=== PATIENT | male | born 1995 | race Caucasian/White ===

== ENCOUNTER → 2024-05-10 | Outpatient (BNVA) | payer MEDICAID, SELFPAY | END | disposition home or self-care (01) | PROVIDERS: PCP Nurse Practitioner Family; Referring Provider Nurse Practitioner Family; Visit Provider Urology | DX: Z30.2 Encounter for sterilization (principal); N40.0 Benign prostatic hyperplasia without lower urinary tract symptoms; E66.9 Obesity, unspecified; Z68.25 Body mass index [BMI] 25.0-25.9, adult; F17.210 Nicotine dependence, cigarettes, uncomplicated | CPT/HCPCS: 81003; 99212; G0463 ==

== ENCOUNTER 2024-07-11 06:35 | Day surgery (SDC) | payer MEDICAID, SELFPAY ==
[2024-07-10 10:28] VITALS: BMI 26.6
--- NOTE | 2024-07-10 13:12 | SUR.PREOP ---
Cardiac records reviewed with Dr Stafford.
[2024-07-11] VITALS (7 sets, daily range): BP systolic 121–147; BP diastolic 76–93; PULSE 75–86; RESP 12–22; TEMP 36.6–36.9; O2SAT 97–100; BMI 25.8
[2024-07-11] MEDS: RINGERS LACTATED 1000 ML 1,000 ML 20 ML IV (07:11)
--- NOTE | 2024-07-11 10:07 | SUR.PHASEI ---
pt received from OR in recovery bay 7. pt awake and alert, breathing unlabored on room air. v/s stable. pt dressing to scrotal area cdi. report received from Dr. Stafford and Gary GILL.
--- NOTE | 2024-07-11 10:10 | PD.SUROPNT ---
Date of Procedure 07/11/24 Pre Op Diagnosis Elective sterilization Post Op Diagnosis Same Procedure Bilateral vasectomy Findings Bilateral vas Procedure Description Indications for procedure this is 29-year-old gentleman who is with children desired bilateral vasectomy procedure and complications were discussed with the patient in great detail informed consent is obtained he understood very well there is no warranty for permanent sterilization literature regarding bilateral vasectomy was provided to the patient Patient was brought to the operating room in a satisfactory condition after appropriate premedication he was put on the operating table in a spine position he was appropriately identified by surgeon and operating room staff indications and scope of the procedure were reconfirmed with the patient general anesthesia has been was given uneventfullyparts were prepped and draped in a usual sterile fashion. Next the right vas deferens was palpated between 2 fingers and a thumb 2% lidocaine with quarter percent Marcaine was instilled appropriately vertical skin incision was made proper hemostasis was secured. Next the vas deferens was brought into the incision it was from its various fascial coverings between 2 silver clips centimeter of the vas deferens was excised. The lumen of the vas deferens was diathermized with coagulation diathermy distal end of the vas deferens was buried between various fascial layers. Skin was approximated with 3-0 chromic. Similar procedure was repeated on the opposite side. Next this sterile dressings were applied. Pressure bandage was given Patient having tolerated the procedure well and was sent to recovery room in a satisfactory condition to be discharged home with full postoperative instructions were verbally as well as in writing to be followed in urology office in 6 weeks' time. Anesthesia GETA Pathology / specimen None Estimated Blood Loss 0.3 Condition Stable Disposition PACU Surgeon Mary Beth Castillo MD Surgical Staff Operation Date: 07/11/24 08:30 Case Staff Anesthesiologist: Rico Stafford
--- NOTE | 2024-07-11 10:18 | SUR.PHASEI ---
pt able to tolerate oral fluids without difficulty swallowing or nausea/vomiting.
[2024-07-11] MEDS: ONDANSETRON INJ 2 MG/ML INJ 2 ML 4 MG IV (10:41)
--- NOTE | 2024-07-11 11:00 | SUR.PHASEII ---
pt awake and alert, breathing unlabored on room air. v/s stable. pt dressing to scrotal area cdi. pt able to ambulate to wheelchair with steady gait. d/c instructions given with s/o Aure over the phone (child presence) and pt in room, all questions answered. pt d/c via wheelchair with all belongings.
== END 2024-07-11 11:00 | disposition home or self-care (01) ==
PROVIDERS: PCP Family Medicine; Referring Provider Urology; Visit Provider Urology
PROC: (CPT 55250; principal; 2024-07-11 08:30)
DX: Z30.2 Encounter for sterilization (principal)
CPT/HCPCS: 55250; A4217; A4649; J1100; J2405; J2704; J2765; J3010; J3490; J7120; A9270; J0665

== ENCOUNTER → 2024-09-07 | Outpatient (BNVA) | payer MEDICAID, SELFPAY | END | disposition home or self-care (01) | PROVIDERS: PCP Nurse Practitioner Family; Referring Provider Nurse Practitioner Family; Visit Provider Urology | DX: N40.0 Benign prostatic hyperplasia without lower urinary tract symptoms (principal); Z98.52 Vasectomy status; F17.210 Nicotine dependence, cigarettes, uncomplicated | CPT/HCPCS: 81003; 99212; G0463 ==

== ENCOUNTER → 2025-05-13 | Outpatient (BNVA) | payer MEDICAID, SELFPAY | END | disposition home or self-care (01) | PROVIDERS: PCP Nurse Practitioner Family; Referring Provider Nurse Practitioner Family; Visit Provider Urology | DX: Z98.52 Vasectomy status (principal); R35.0 Frequency of micturition | CPT/HCPCS: 81003; 99212; G0463 ==